=== PATIENT | male | born 1995 | race Caucasian/White ===

== ENCOUNTER 2018-01-01 14:08 | Emergency (ER) | payer SELFPAY ==
[2018-01-01 14:29] VITALS: BP 160/72; PULSE 51; RESP 16; TEMP 97.9; O2SAT 98
[2018-01-01] MEDS ORDERED: AMOX875T PO (14:59)
--- NOTE | 2018-01-01 15:00 | PD ---
HPI Chief Complaint: Lump, Cyst, Hernia Time Seen by Provider: 14:55 Travel History International Travel<30 days: No Contact w/Intl Traveler<30days: No Traveled to known affect area: No History of Present Illness HPI 22-year-old male presents to the emergency department for evaluation of an enlarged lymph node to the submandibular region as well as some mild left back dental pain that started 2-3 days ago. Patient states his mom is a hemstitcher and states that he needs oral surgery for infection to his wisdom tooth. The patient states that he would like "diagnostics" to be done as to why his lymph node is enlarged. Patient reports no other medical problems. He appears well on exam. He states the pain to the back molar is mild without radiation. He has no chronic medical problems and takes no prescribed medications. Mild severity. [facility] Social History Alcohol Use: No Tobacco Use: No Substance Use: No Allergies-Medications (Allergen,Severity, Reaction): Coded Allergies: No Known Allergies (Unverified , 01/01/18) Reported Meds & Prescriptions Reported Meds & Active Scripts Active Amoxicillin 875 Mg Tab 875 Mg PO BID 7 Days Review of Systems Except as stated in HPI: all other systems reviewed are Neg Physical Exam Narrative GENERAL: Well-nourished, well-developed male patient, ambulatory. Afebrile. SKIN: Focused skin assessment warm/dry. Patient has slight tenderness to the left submandibular region, no evidence of acutely enlarged lymph node. No induration. No Dilshad's angina. HEAD: Normocephalic. Atraumatic. ENT: Mucosa pink and moist. No erythema or exudates. No uvular edema. No uvular , palatal, or tonsillar deviation. Airway patent. Nasal turbinates appear normal without nasal blood, purulent drainage or septal hematoma. Bilateral tympanic membranes are clear without erythema or perforation. Mild tenderness over back left molar. EYES: No scleral icterus. No injection or drainage. NECK: Supple, trachea midline. No JVD or lymphadenopathy. CARDIOVASCULAR: Regular rate and rhythm without murmurs, gallops, or rubs. RESPIRATORY: Breath sounds equal bilaterally. No accessory muscle use. Lungs sounds are clear to auscultation. GASTROINTESTINAL: Abdomen soft, non-tender, nondistended. MUSCULOSKELETAL: No cyanosis, or edema. BACK: Nontender without obvious deformity. No CVA tenderness. Data Data Last Documented VS Vital Signs Date Time Temp Pulse Resp B/P (MAP) Pulse Ox O2 Delivery O2 Flow Rate FiO2 01/01/18 14:29 97.9 51 16 160/72 (101) 98 Orders Orders Ed Discharge Order (01/01/18 15:00) MDM Medical Decision Making Medical Screen Exam Complete: Yes Emergency Medical Condition: Yes Medical Record Reviewed: Yes Differential Diagnosis Dentalgia versus dental abscess versus lymphadenitis Narrative Course 22-year-old male presents to the emergency department stating is an enlarged lymph node and is requesting diagnostics and antibiotic. He does report some left back molar pain as well. He appears well on exam and is not acutely ill. His vital signs are stable. Patient is instructed to follow up with a dentist. He'll be discharged with a prescription for amoxicillin. The patient was discharged in stable condition with instructions, including return instructions and follow up instructions. The patient calls me and requested I speak to his mother over the phone. The mother is hostile towards me and states that he needs to be referred to somebody who can follow up on him from start to finish and I need to do further testing to determine why he has a tender lymph node. The patient appears very well on exam and has no emergent condition that I identified. I instructed her that he needs outpatient follow-up. The patient's mother continues to be hostile and agitated. Diagnosis Primary Impression: Dentalgia Referrals: Dentist Primary Care Physician Patient Instructions: General Instructions, Toothache (ED) Additional Instructions: Take antibiotic as directed until gone. Follow-up with your primary care physician and dentist. Return to the emergency department for any acute worsening of symptoms. Med/Other Pt SpecificInfo: Prescription(s) given Scripts Amoxicillin (Amoxicillin) 875 Mg Tab 875 MG PO BID for Infection for 7 Days, #14 TAB 0 Refills Prov: Radha Davis 01/01/18 Disposition: 01 DISCHARGE HOME Condition: Stable Radha Davis Jan 01, 2018 15:00
== END 2018-01-01 15:16 | disposition home or self-care (01) ==
LOC: NEPK 14:08
DX: K08.89 Other specified disorders of teeth and supporting structures (principal)
CPT/HCPCS: 99283